=== PATIENT | male | born 1980 | race African-American/Black ===

== ENCOUNTER 2019-11-09 20:52 | Emergency (ER) | payer BC ==
[~2019-11-09] VITALS: Ht 175.3 cm; Wt 68.0 kg
[2019-11-09 22:03] LABS: URINE BILIRUBIN NEGATIVE (Negative); URINE BLOOD NEGATIVE (Negative); URINE CLARITY CLEAR; URINE COLOR YELLOW; URINE GLUCOSE-RANDOM* NEGATIVE (Negative); URINE KETONES NEGATIVE (Negative); URINE LEUKOCYTES-REFLEX NEGATIVE (Negative); URINE NITRITE-REFLEX NEGATIVE (Negative); URINE PROTEIN (DIPSTICK) NEGATIVE (Negative); URINE UROBILINOGEN 0.2 E.U./dl (0.2-1.0)
[2019-11-09 22:25] LABS: ABSOLUTE NEUTROPHILS 4.8 thou/uL (1.4-8.2); BASOPHILS 0.8 % (0.0-2.0); EOSINOPHILS 1.3 % (0.0-3.0); HEMATOCRIT 39.4 % (42.0-52.0); HEMOGLOBIN 13.5 gm/dL (14.0-18.0); LYMPHOCYTES 31.9 % (24.0-44.0); MCH 31.9 pg (26.0-34.0); MCHC 34.3 g/dL (28.0-37.0); MCV 92.9 fL (80.0-100.0); MONOCYTES 6.8 % (1.0-8.0); PLATELET COUNT 252 thou/uL (150-400); POLYS 59.2 % (36.0-66.0); RBC 4.24 mil/uL (4.50-6.00); RDW 12.9 % (10.5-14.5); WBC 8.2 thou/uL (4.0-11.0)
[2019-11-09 22:29] LABS: ANION GAP 7 mmol/L (7-16); BUN 15 mg/dL (7-18); CALCIUM 8.6 mg/dL (8.5-10.1); CHLORIDE 103 mmol/L (98-107); CO2 25 mmol/L (21-32); CREATININE 1.1 mg/dL (0.7-1.3); GLUCOSE 83 mg/dL (74-106); SODIUM 135 mmol/L (136-145)
[2019-11-09 22:35] LABS: ALBUMIN 3.4 g/dL (3.4-5.0); DIRECT BILIRUBIN < 0.1 mg/dL (<0.1-0.2); LIPASE 62 U/L (73-393); SGOT 15 U/L (15-37); SGPT 16 U/L (30-65); TOTAL BILIRUBIN 0.2 mg/dL (<0.1-1.0); TOTAL PROTEIN 6.5 g/dL (6.4-8.2)
[2019-11-10 00:04] VITALS: BP 122/82
== END 2019-11-10 00:05 | disposition home or self-care (01) ==
LOC: ER 20:52
PROVIDERS: Nurse Practitioner
DX: K62.5 Hemorrhage of anus and rectum (principal); R10.9 Unspecified abdominal pain; M54.9 Dorsalgia, unspecified; F17.210 Nicotine dependence, cigarettes, uncomplicated

== ENCOUNTER 2020-01-31 09:45 | Emergency (ER) | payer OTHER ==
[~2020-01-31] VITALS: Ht 172.7 cm; Wt 65.8 kg
[2020-01-31 10:17] LABS: HEMATOCRIT 41.1 % (42.0-52.0); MCH 31.7 pg (26.0-34.0); MCHC 34.1 g/dL (28.0-37.0); MCV 92.9 fL (80.0-100.0); RBC 4.42 mil/uL (4.50-6.00); RDW 12.9 % (10.5-14.5); WBC 11.2 thou/uL (4.0-11.0)
[2020-01-31 10:35] LABS: CALCIUM 8.3 mg/dL (8.5-10.1); POTASSIUM 3.5 mmol/L (3.5-5.1)
[2020-01-31] MEDS ORDERED: MOBIC15 MG PO (11:44)
[2020-01-31] MEDS ORDERED: PROAIR HFA8.5 GM INH (12:02)
[2020-01-31 12:25] VITALS: BP 121/72
== END 2020-01-31 12:26 | disposition home or self-care (01) ==
LOC: ER 09:45
PROVIDERS: Emergency Medicine
DX: B34.9 Viral infection, unspecified (principal); Z20.828 Contact with and (suspected) exposure to other viral communicable diseases; R06.02 Shortness of breath; F17.210 Nicotine dependence, cigarettes, uncomplicated

== ENCOUNTER 2020-02-23 08:51 | Emergency (ER) | payer OTHER ==
[~2020-02-23] VITALS: Ht 172.7 cm; Wt 62.6 kg
[~2020-02-23 08:51] MED LIST: MOBIC15 MG PO; PROAIR HFA8.5 GM INH
[2020-02-23] MEDS ORDERED: GUAIFEN-CODEINE10 ML PO (11:08)
[2020-02-23] MEDS ORDERED: MOBIC15 MG PO (11:08)
[2020-02-23 12:05] VITALS: BP 116/59
== END 2020-02-23 12:07 | disposition home or self-care (01) ==
LOC: ER 08:51
DX: R05 Cough (principal); Z20.828 Contact with and (suspected) exposure to other viral communicable diseases; F17.210 Nicotine dependence, cigarettes, uncomplicated

== ENCOUNTER 2020-05-06 07:01 | Emergency (ER) | payer OTHER ==
[~2020-05-06] VITALS: Ht 172.7 cm; Wt 64.1 kg
[~2020-05-06 07:01] MED LIST changes: +GUAIFEN-CODEINE10 ML PO
[2020-05-06 07:44] LABS: ABSOLUTE NEUTROPHILS 4.1 thou/uL (1.4-8.2); BASOPHILS 0.8 % (0.0-2.0); EOSINOPHILS 2.4 % (0.0-3.0); HEMATOCRIT 39.9 % (42.0-52.0); HEMOGLOBIN 13.5 gm/dL (14.0-18.0); LYMPHOCYTES 30.8 % (24.0-44.0); MCH 30.9 pg (26.0-34.0); MCHC 33.8 g/dL (28.0-37.0); MCV 91.6 fL (80.0-100.0); MONOCYTES 7.2 % (1.0-8.0); POLYS 58.8 % (36.0-66.0); RBC 4.35 mil/uL (4.50-6.00); RDW 15.2 % (10.5-14.5)
[2020-05-06 07:54] LABS: CALCIUM 8.7 mg/dL (8.5-10.1); CREATININE 0.8 mg/dL (0.7-1.3); POTASSIUM 4.3 mmol/L (3.5-5.1)
[2020-05-06 08:00] LABS: ALBUMIN 3.7 g/dL (3.4-5.0); TOTAL BILIRUBIN 0.9 mg/dL (0.2-1.0); TOTAL PROTEIN 7.4 g/dL (6.4-8.2)
--- NOTE | 2020-05-06 08:14 | EKG ---
[facility] [place] [address] ELECTROCARDIOGRAM REPORT Name: ZOEY AMAYA Room #: PRE M.R.#: [id number] Admission: Attend Phys: Discharge: Date of : 76 Report #: [id number] THIS REPORT FOR: cc: RAUL - Faiza family physician/PCP RAUL - Faiza family physician/PCP Andi Locke MD ~ THIS REPORT FOR: //name// [facility] ED Test Date: 2020-05-06 Test Time: 07:54:40 Pat Name: ZOEY AMAYA Department: Room: Gender: M Surgery Scheduler: kf : 1980 Requested By: Jerrell Garza Order Number: [id number] MD: Andi Locke Measurements Intervals [place] Rate: 63 P: 48 GA: 150 QRS: 46 QRSD: 90 T: 38 QT: 385 QTc: 395 Interpretive Statements Sinus rhythm ST elev, probable normal early repol pattern No previous ECG available for comparison Electronically Signed On 05-06-2020 8:14:07 CDT by Andi Locke [email or web address] <ELECTRONICALLY SIGNED> By: Andi Locke MD 05/06/20 [id number] [id number] Andi Locke MD /ROBERT
[2020-05-06 08:45] LABS: URINE BILIRUBIN NEGATIVE (Negative); URINE BLOOD NEGATIVE (Negative); URINE CLARITY CLEAR; URINE COLOR YELLOW; URINE GLUCOSE-RANDOM* NEGATIVE (Negative); URINE KETONES NEGATIVE (Negative); URINE LEUKOCYTES-REFLEX NEGATIVE (Negative); URINE NITRITE-REFLEX NEGATIVE (Negative); URINE PROTEIN (DIPSTICK) NEGATIVE (Negative); URINE SPECIFIC GRAVITY >= 1.030 (1.005-1.035); URINE UROBILINOGEN 0.2 E.U./dl (0.2-1.0)
[2020-05-06 09:12] LABS: PLATELET COUNT 288 thou/uL (150-400)
[2020-05-06 09:30] VITALS: BP 100/58
== END 2020-05-06 09:30 | disposition home or self-care (01) ==
LOC: ER 07:01
PROVIDERS: Emergency Medicine
DX: R10.13 Epigastric pain (principal); R63.4 Abnormal weight loss; R82.90 Unspecified abnormal findings in urine; F17.210 Nicotine dependence, cigarettes, uncomplicated; Z68.21 Body mass index [BMI] 21.0-21.9, adult

== ENCOUNTER 2021-03-08 00:27 | Emergency (ER) | payer OTHER ==
[~2021-03-08] VITALS: Ht 172.7 cm; Wt 65.8 kg
[2021-03-08 00:28] VITALS: BP 107/65
== END 2021-03-08 01:21 | disposition home or self-care (01) ==
LOC: ER 00:27
DX: U07.1 COVID-19 (principal); F17.210 Nicotine dependence, cigarettes, uncomplicated

== ENCOUNTER 2021-03-12 17:27 | Emergency (ER) | payer OTHER ==
[~2021-03-12] VITALS: Ht 172.7 cm; Wt 68.0 kg
[2021-03-12 17:31] VITALS: BP 111/77
== END 2021-03-12 18:23 | disposition home or self-care (01) ==
LOC: ER 17:27
DX: U07.1 COVID-19 (principal); J00 Acute nasopharyngitis [common cold]; F17.210 Nicotine dependence, cigarettes, uncomplicated